=== PATIENT | female | born 1950 | race Caucasian/White ===

== ENCOUNTER 2018-06-07 10:07 | Emergency (ER) | payer OTHER, MEDICAID ==
[~2018-06-07] VITALS: Ht 162.6 cm; Wt 81.6 kg
[2018-06-07 12:04] VITALS: BP 122/62
== END 2018-06-07 13:40 | disposition home or self-care (01) ==
LOC: ED 10:07
DX: M54.31 Sciatica, right side (principal); M19.90 Unspecified osteoarthritis, unspecified site; I10 Essential (primary) hypertension
CPT/HCPCS: J2270; Q0162

== ENCOUNTER 2018-08-03 16:16 | Emergency (ER) | payer OTHER, MEDICAID ==
[~2018-08-03] VITALS: Ht 165.1 cm; Wt 81.2 kg
[2018-08-03 16:34] VITALS: Ht 165.1 cm; Wt 81.2 kg
[2018-08-03 17:38] LABS: BASOPHIL % 0.8 % (0-2); PLATELET COUNT 212 x10^3mcL (130-400); RED CELL DISTRIBUTION WIDTH 14.1 % (11.5-14.5)
[2018-08-03 18:04] LABS: CALCIUM 9.2 mg/dL (8.5-10.1); CARBON DIOXIDE 25.1 mmol/L (21-32); CHLORIDE SERUM 102 mmol/L (98-107); CREATININE SERUM 0.6 mg/dL (0.6-1.0); GFR1 > 60 mL/min; GLUCOSE SERUM 107 mg/dL (74-106); POTASSIUM SERUM 4.1 mmol/L (3.5-5.1); SODIUM SERUM 138 mmol/L (136-145)
[2018-08-03 18:16] LABS: ALBUMIN 4.4 g/dL (3.4-5.0); ALKALINE PHOSPHATASE 84 U/L (46-116); ALT/SGPT 38 U/L (14-59); AMYLASE 56 U/L (25-115); AST/SGOT 41 U/L (15-37); BILIRUBIN TOTAL 0.96 mg/dL (0.20-1.00); CHOLESTEROL 180 mg/dL (<200); HDL CHOLESTEROL 44 mg/dL (40-60); LIPASE 112 IU/L (73-393); T4(THYROXINE) 9.2 ug/dL (4.7-13.3)
[2018-08-03 18:17] LABS: TOTAL PROTEIN, SERUM 8.4 g/dL (6.4-8.2)
[2018-08-03 18:44] LABS: UA SPECIFIC GRAVITY >=1.030 (1.005-1.035); microscopic required? YES; urine erythrocyte TRACE (NEGATIVE)
[2018-08-03 19:27] LABS: AMPHETAMINE QUAL UR NONE DETECTED (See below)
[2018-08-03 21:06] VITALS: BP 142/73
== END 2018-08-03 21:06 | disposition home or self-care (01) ==
LOC: ED 16:16
PROVIDERS: Emergency Medicine
DX: N39.0 Urinary tract infection, site not specified (principal); R11.2 Nausea with vomiting, unspecified; R42 Dizziness and giddiness; I10 Essential (primary) hypertension; E11.9 Type 2 diabetes mellitus without complications; E78.00 Pure hypercholesterolemia, unspecified; Z90.710 Acquired absence of both cervix and uterus; Z90.89 Acquired absence of other organs; Z90.49 Acquired absence of other specified parts of digestive tract
CPT/HCPCS: J2405; J3490; J7030